=== PATIENT | male | born 2000 | race African-American/Black ===

== ENCOUNTER 2021-05-09 21:35 | Emergency (ER) | payer MEDICAID ==
[~2021-05-09] VITALS: Ht 177.8 cm; Wt 80.0 kg
[2021-05-09 23:14] VITALS: BP 120/68
== END 2021-05-09 23:15 | disposition home or self-care (01) ==
LOC: ER 21:35
DX: R00.2 Palpitations (principal); F32.9 Major depressive disorder, single episode, unspecified; F41.9 Anxiety disorder, unspecified; J45.909 Unspecified asthma, uncomplicated
CPT/HCPCS: 93005; 99283